=== PATIENT | male | born 1990 | race Caucasian/White ===

== ENCOUNTER 2018-04-21 01:05 | Emergency (ER) | payer OTHER ==
[~2018-04-21 01:05] MED LIST: ESCI10TA8 PO
--- NOTE | 2018-04-21 01:09 | ER Report ---
History and Physical Time Seen By MD: 01:08 HPI/ROS CHIEF COMPLAINT: Right ankle pain HISTORY OF PRESENT ILLNESS: 27-year-old male presents to the ER complaining of right ankle pain, which is keeping him awake. He rolled his ankle on the stairs earlier about 5 hours prior to arrival. Patient notes 04/06 throbbing pain aggravated by movement and palpation. Patient denies any other injuries. Patient took ibuprofen for pain relief with little improvement. Allergies: Coded Allergies: No Known Drug Allergies (Unverified , 04/21/18) Home Meds Active Scripts Tramadol Hcl (TRAMADOL HCL) 50 Mg Tablet, 50-100 MG PO Q4-6H for PAIN, #12 MG TAKE ONE TABLET BY MOUTH EVERY SIX HOURS NEEDED Prov:KAYLEEISAIAS Sky DO 04/21/18 Discontinued Scripts Escitalopram Oxalate (ESCITALOPRAM OXALATE) 10 Mg Tablet, 10 MG PO QDAY, #30 TAB 3 Refills Prov:WILLIAM MARIA MD 08/19/17 Reviewed Nurses Notes: Yes Old Medical Records Reviewed: Yes Smoking Status: Current: Some Days Smoker Constitutional Vital Sign - Last 24 Hours 04/21/18 04/21/18 04/21/18 04/21/18 01:10 01:20 01:35 01:50 Temp 98.0 Pulse 109 96 73 77 Resp 16 B/P (MAP) 178/88 Pulse Ox 95 94 96 93 O2 Delivery Room Air 04/21/18 01:59 Pulse 87 Physical Exam General appearance: Alert no distress. Respiratory: Chest is non tender, lungs are clear to auscultation. Cardiac: Regular rate and rhythm Extremities: Right lower extremity is neurovascularly intact. There is minimal soft tissue swelling around the ankle joint. All digits are neurovascularly intact. Patient has well preserved range of motion. DIFFERENTIAL DIAGNOSIS: After history and physical exam differential diagnosis was considered for sprain, strain, fracture, dislocation, contusion. Medical Decision Making EKG/Imaging Imaging X-ray: Right ankle, 3 views was obtained. I viewed the images myself on the PACS system. My interpretation of the images is: No fracture no dislocation, no malalignment. The radiologist interpretation had no clinically significant variation from this interpretation. ED Course/Re-evaluation ED Course Patient was admitted to an examination room. H&P was done. The differential diagnosis was considered. On clinical examination. Patient has a benign appearing ankle examination. His x-rays are unremarkable. Patient's advised conservative treatment with high-dose ibuprofen. He's given a limited supply of tramadol for temporary pain relief. He's placed in air splint to brace his ankle so to heal quicker. Decision to Disposition Date: Apr 21, 2018 Decision to Disposition Time: 01:57 Depart Departure Latest Vital Signs Vital Signs Date Time Temp Pulse Resp B/P (MAP) Pulse Ox O2 Delivery O2 Flow Rate FiO2 04/21/18 01:59 87 04/21/18 01:50 93 04/21/18 01:10 98.0 16 178/88 Room Air Impression: Primary Impression: Right ankle sprain Condition: Improved Disposition: HOME OR SELF-CARE Referrals: WILLIAM MARIA MD (PCP) New Scripts Tramadol Hcl (TRAMADOL HCL) 50 Mg Tablet 50-100 MG PO Q4-6H for PAIN, #12 MG TAKE ONE TABLET BY MOUTH EVERY SIX HOURS NEEDED Prov: ISAIAS PAGE DO 04/21/18 Patient Instructions: Ankle Sprain (ED) Additional Instructions: Take ibuprofen 200 mg 3 tablets 3 times a day with food Wear splint for 5 days Follow-up with primary care if unimproved in 3-5 days Problem Qualifiers Primary Impression: Right ankle sprain Encounter type: initial encounter Involved ligament of ankle: unspecified ligament Qualified Codes: S93.401A - Sprain of unspecified ligament of right ankle, initial encounter ISAIAS PAGE DO Apr 21, 2018 01:09
[2018-04-21 01:10] VITALS: BP 178/88
--- NOTE | 2018-04-21 01:53 | RADIOLOGY IMAGING REPORT ---
[place] [facility] [place] NAME: Lizette Drew : 1990 MR: [id number] V: [id number] EXAM DATE: ORDERING PHYSICIAN: ISAIAS PAGE TECHNOLOGIST: Location: [facility] Patient: Lizette Drew : 1990 Visit/Account:[id number] Date of Sevice: 04/21/2018 INDICATION: Twisted right ankle. EXAM DATE: 04/21/2018 1:28 AM COMPARISON: None. FINDINGS: 3 views right ankle. Mineralization is normal. No acute alignment abnormality or fracture. Stieda pr ocess. Soft tissues are unremarkable. IMPRESSION: Normal right ankle. Report Dictated By: Jose Luis White MD at 04/21/2018 1:47 AM Report E-Signed By: Jose Luis White MD at 04/21/2018 1:48 AM WSN:[id number]
[2018-04-21] MEDS ORDERED: TRAM-420 PO (02:00)
[2018-04-21] MEDS ORDERED: traMADol 50 MG TAB TH 2 TAB/BOTTLE PO ONE (02:00)
== END 2018-04-21 02:08 | disposition home or self-care (01) ==
LOC: ER 01:47
DX: S93.401A Sprain of unspecified ligament of right ankle, initial encounter (principal); X50.1XXA Overexertion from prolonged static or awkward postures, initial encounter
CPT/HCPCS: 73610; 99283; C9399; L1930